=== PATIENT | female | born 1940 | race Caucasian/White ===

== ENCOUNTER 2021-05-05 11:50 | Emergency (ER) | payer MEDICARE, OTHER, SELFPAY ==
[2021-05-05 11:50] VITALS: BP 156/78; PULSE 72; RESP 14; TEMP 37; O2SAT 97; BMI 26.5
--- NOTE | 2021-05-05 11:51 | HMH.EDDIZZ ---
ED Disposition Clinical Impression: Benign paroxysmal positional vertigo Qualifiers: Laterality: unspecified laterality Qualified Code(s): H81.10 - Benign paroxysmal vertigo, unspecified ear Disposition: Home, Self-Care Condition on Discharge: Fair Instructions: Vertigo Additional Instructions: Please follow-up with your primary care physician in 3 to 4 days if your symptoms do not improve. Return to the emergency department immediately if your symptoms worsen or if you develop new symptoms. Prescriptions: Meclizine HCl [Meclizine 25mg Tab] 25 mg PO Q6H PRN #20 tab PRN Reason: Vertigo Transmission Status: Received by [id number] Referrals: Provider,Referral, [Primary Care Provider] - - Critical Care Critical Care Time: No Attestation: On , the high probability of a clinically significant, sudden or life threatening deterioration of the following system(s) required my full and direct attention, intervention and personal management. The time I documented below is in addition to time spent performing reported procedures but includes the following listed in this critical care notation. Medical Decision Making - Medical Records Medical records reviewed: Yes: I reviewed the patient's medical records. - Aman Inquiry Pt receiving controlled substance: No Vital Signs: 05/05/21 11:50 05/05/21 12:30 05/05/21 13:00 Temperature 98.6 F Temperature Source Oral Pulse Rate 76 77 Pulse Rate [Left] 72 Respiratory Rate 14 17 13 Blood Pressure 148/72 H 138/73 Blood Pressure [Right Arm] 156/78 H Blood Pressure Mean [Right Arm] 104 02 Sat by Pulse Oximetry 97 95 95 Oxygen Delivery Method Room Air Orders (Tests/Meds): ED MEDICATIONS Discontinued Medications Generic Name Dose Route Start Last Admin Trade Name Freq PRN Reason Stop Dose Admin Meclizine HCl 50 mg 05/05/21 11:55 05/05/21 11:58 Meclizine 25mg Tablet PO 05/05/21 11:56 50 mg ONCE ONE Administration - Reevaluation(s) Time: 12:51 Reevaluation #1: Patient symptoms are much better. She received meclizine. Her symptoms are most consistent with benign peripheral vertigo. Medical Decision Narrative: The patient presents to the emergency department complaining of dizziness with vomiting. This began last night. The patient has no other neurologic deficits. Patient was given meclizine for benign positional vertigo. Her symptoms improved significantly. I do not feel that the patient requires imaging or other work-up. NIH stroke scale is 0. Patient will be discharged home in stable condition with a prescription for meclizine. Dizzy HPI - General Chief Complaint: Dizziness Stated Complaint: vomiting/diarrhea Time Seen by Provider: 05/05/21 11:52 Mode of Arrival: EMS Source of Information: Patient Limitations: No Limitations - History of Present Illness HPI Narrative: The patient presents to the emergency department via EMS complaining of dizziness and vomiting. This began approximately at midnight last night. Of note, the patient's son tested positive for Covid and the patient has not received Covid vaccination. However, the patient does not complain of shortness of breath, cough, fever, loss of smell, or loss of taste, complaint: dizziness Timing: sudden onset Description: sense of movement, room spinning History of similar episodes: No Severity: moderate - Related Data Previous Rx's Medication Instructions Recorded Meclizine HCl [Meclizine 25mg Tab] 25 mg PO Q6H PRN #20 tab 05/05/21 Allergies Allergy/AdvReac Type Severity Reaction Status Date / Time No Known Allergies Allergy Verified 05/05/21 11:56 [facility] History - Hepatitis A Screen Drug use history?: No Attestation statement:: This patient has been screened for Hepatitis A risk factors. I have reviewed the patient's past medical history: Yes ROS Obtained: Yes All systems reviewed & no additional complaints -
[2021-05-05 12:30] VITALS: BP 148/72; PULSE 76; RESP 17; O2SAT 95
[2021-05-05 13:00] VITALS: BP 138/73; PULSE 77; RESP 13; O2SAT 95
[2021-05-05 14:09] VITALS: BP 138/73; PULSE 84; RESP 17; TEMP 36.7; O2SAT 92
== END 2021-05-05 14:10 | disposition home or self-care (01) ==
PROVIDERS: Emergency Provider Emergency Medicine
DX: H81.10 Benign paroxysmal vertigo, unspecified ear (principal)
CPT/HCPCS: 99281

== ENCOUNTER 2021-05-12 14:10 | Emergency (ER) | payer MEDICARE, OTHER, SELFPAY ==
[2021-05-12 16:01] VITALS: BMI 23.8
--- NOTE | 2021-05-12 16:02 | XR_ITS ---
PROCEDURE: XR CHEST PORTABLE CLINICAL HISTORY: SYNCOPAL EPISODE COMPARISON: No exams were available for comparison FINDINGS: Borderline cardiomegaly without failure. The mediastinum is prominent and may be related to vascular ectasia. No lobar consolidation or collapse. Faint nodular opacity is present in the right lower lobe nonspecific possibly due to summation artifact. IMPRESSION: No definite acute finding. There is cardiomegaly with mild prominence of the mediastinum and questionable nodular density in the right lung base. Dictated by: Rosas Levy MD 05/12/2021 16:39 Rosas Levy MD in [facility] 05/12/2021 16:39
[2021-05-12 16:15] VITALS: BP 115/82; PULSE 97; RESP 16; TEMP 36.8; O2SAT 89; BMI 23.8
--- NOTE | 2021-05-12 16:18 | CT_ITS ---
PROCEDURE INFORMATION: Exam: CT Head Without Contrast Exam date and time: 05/12/2021 4:18 PM Age: 80 years old Clinical indication: Syncope and collapse TECHNIQUE: Imaging protocol: Computed tomography of the head without contrast. Radiation optimization: All CT scans at this facility use at least one of these dose optimization techniques: automated exposure control; mA and/or kV adjustment per patient size (includes targeted exams where dose is matched to clinical indication); or iterative reconstruction. COMPARISON: No relevant prior studies available. FINDINGS: Brain: No intracranial bleed, suspicious mass, or mass effect. Ventricles appear unremarkable. There is minimal low attenuation change in the white matter most consistent with chronic age related small vessel ischemic change. No acute territorial infarction is seen. These can be initially occult on head CT. Cerebral ventricles: See Brain finding. Paranasal sinuses: Visualized sinuses are unremarkable. No fluid levels. Mastoid air cells: Visualized mastoid air cells are well aerated. Bones/joints: Unremarkable. No acute fracture. Soft tissues: Unremarkable. IMPRESSION: 1. No intracranial bleed, suspicious mass, or mass effect. Ventricles appear unremarkable. 2. There is minimal low attenuation change in the white matter most consistent with chronic age related small vessel ischemic change. No acute territorial infarction is seen. These can be initially occult on head CT.
[2021-05-12 16:31] LABS: Chloride 105 mmol/L (98-107); Sodium 138 mmol/L (136-145)
[2021-05-12 16:32] LABS: Potassium 3.6 mmoL/L (3.5-5.1)
--- NOTE | 2021-05-12 16:33 | CT_ITS ---
PROCEDURE INFORMATION: Exam: CT Cervical Spine Without Contrast Exam date and time: 05/12/2021 4:33 PM Age: 80 years old Clinical indication: Injury or trauma; Fall; Blunt trauma TECHNIQUE: Imaging protocol: Computed tomography images of the cervical spine without contrast. Radiation optimization: All CT scans at this facility use at least one of these dose optimization techniques: automated exposure control; mA and/or kV adjustment per patient size (includes targeted exams where dose is matched to clinical indication); or iterative reconstruction. COMPARISON: CR XR CHEST PORTABLE 05/12/2021 4:13 PM FINDINGS: Bones/joints: No cervical fracture or subluxation. Discs/Spinal canal/Neural foramina: No significant disc protrusion. No severe spinal canal stenosis. No significant neural foraminal narrowing. Thyroid: Indeterminate thyroid nodules with a dominant 2.3 cm nodule right lobe of the thyroid. Nonemergent ultrasound is recommended for further assessment unless this has been previously worked up. Lungs: Atelectasis and pleuroparenchymal scarring periphery of the visualized left upper lung. It is difficult to exclude superimposed ground-glass opacities here currently. Soft tissues: Unremarkable. IMPRESSION: 1. No cervical fracture or subluxation. 2. Indeterminate thyroid nodules with a dominant 2.3 cm nodule right lobe of the thyroid. Nonemergent ultrasound is recommended for further assessment unless this has been previously worked up. 3. Atelectasis and pleuroparenchymal scarring periphery of the visualized left upper lung. It is difficult to exclude superimposed ground-glass opacities here currently. COMMENTS: Consistent with the [employer]'s Incidental Findings Committee white paper (J Am Puneet Radiol 2015): In patients aged 35 years and older with an incidental thyroid nodule equal to or greater than 1.[address], MRI or extrathyroidal US, further evaluation with dedicated thyroid US is recommended for patients with normal life expectancy and without comorbidities. For smaller nodules without suspicious features, no further evaluation or follow up is recommended.
[2021-05-12 16:34] LABS: Alanine Aminotransferase 21 U/L (12-78); Albumin Level 3.8 g/dl (3.5-5.0); Albumin/Globulin Ratio 1.2 (1.1-1.8); Alkaline Phosphatase 80 U/L (38-126); Anion Gap 13.6 mEq/L (5-15); Aspartate Amino Transferase 24 U/L (14-36); Bilirubin,Total 0.6 mg/dl (0.2-1.3); Blood Urea Nitrogen 20 mg/dl (7-17); Carbon Dioxide 23 mmol/L (22.0-30.0); Creatinine Clearance Estimated 43 mL/min (50-200); Estimated Glomerular Filt Rate 81 ml/min (>60); GFR (African American) 98 ML/MIN (>60); Globulin 3.2 g/dL (1.3-3.2)
[2021-05-12 16:35] LABS: Calcium 8.6 mg/dl (8.4-10.2); Glucose 129 mg/dl (74-100)
[2021-05-12 16:44] LABS: Basophils % 0.2 % (0.1-2.0); Eosinophils % 0.3 % (0.1-12.0); Hematocrit 42.4 % (37.0-47.0); Hemoglobin 14.3 g/dL (12.2-16.2); Lymphocytes # 1.5 K/mm3 (0.7-4.5); Lymphocytes % 19.6 % (10-50); Mean Corpuscular HGB Conc 33.8 g/dL (31.8-35.4); Mean Corpuscular Hemoglobin 30.1 pg (27.0-31.2); Mean Platelet Volume 7.2 fl (7.4-10.4); Monocytes # 0.6 K/mm3 (0.1-1.0); Monocytes % 8.3 % (1.7-9.3); Neutrophils # 5.4 K/mm3 (1.8-7.8); Neutrophils % 71.6 % (37.0-80.0); Platelet Count 313 K/mm3 (142-424); Red Blood Count 4.76 M/mm3 (4.20-5.40); Red Cell Distribution Width 12.7 % (11.5-17.5); White Blood Count 7.5 K/mm3 (4.8-10.8)
[2021-05-12 16:47] LABS: Troponin I < 0.01 ng/ml (0.00-0.034)
[2021-05-12 17:30] VITALS: BP 134/90; PULSE 105; RESP 22; O2SAT 95
--- NOTE | 2021-05-12 17:54 | HMH.EDGENADL ---
ED Disposition Clinical Impression: Vertigo Benign paroxysmal positional vertigo Qualifiers: Laterality: unspecified laterality Qualified Code(s): H81.10 - Benign paroxysmal vertigo, unspecified ear Disposition: Home, Self-Care Condition on Discharge: Good Instructions: DI for Syncope in Adults (Fainting) Additional Instructions: Follow-up with your PCP tomorrow. Return to emergency department for headache, visual change, confusion, nausea and vomiting. Referrals: Provider,Referral, [Primary Care Provider] - 05/13/21 (Call for appointment) Time of Disposition: 18:06 - Critical Care Critical Care Time: No Attestation: On 05/12/21, the high probability of a clinically significant, sudden or life threatening deterioration of the following system(s) required my full and direct attention, intervention and personal management. The time I documented below is in addition to time spent performing reported procedures but includes the following listed in this critical care notation. Medical Decision Making - Medical Records Medical records reviewed: Yes: I reviewed the patient's medical records. - Aman Inquiry Pt receiving controlled substance: No Vital Signs: 05/12/21 16:15 05/12/21 17:30 Temperature 98.3 F Temperature Source Oral Pulse Rate 105 H Pulse Rate [Right] 97 H Respiratory Rate 16 22 Blood Pressure 134/90 Blood Pressure [Right Arm] 115/82 Blood Pressure Mean [Right Arm] 93 02 Sat by Pulse Oximetry 89 L 95 Oxygen Delivery Method Room Air - Lab Data Lab results reviewed: Yes: I reviewed the patient's lab results. Lab Results 05/12/21 16:14: WBC 7.5, RBC 4.76, Hgb 14.3, Hct 42.4, MCV 89.0, MCH 30.1, MCHC 33.8, RDW 12.7, Plt Count 313, MPV 7.2 L, Neut % (Auto) 71.6, Lymph % (Auto) 19.6, Towns % (Auto) 8.3, Eos % (Auto) 0.3, Baso % (Auto) 0.2, Neut # (Auto) 5.4, Lymph # (Auto) 1.5, Towns # (Auto) 0.6, Eos # (Auto) 0.0, Baso # (Auto) 0.0 05/12/21 16:14: Sodium 138, Potassium 3.6, Chloride 105, Carbon Dioxide 23, Anion Gap 13.6, BUN 20 H, Creatinine 0.70, Estimated Creat Clear 43, Estimated GFR 81, Est GFR ( Amer) 98, Glucose 129 H, Calcium 8.6, Total Bilirubin 0.6, AST 24, ALT 21, Alkaline Phosphatase 80, Troponin I < 0.01, Total Protein 7.0, Albumin 3.8, Globulin 3.2, Albumin/Globulin Ratio 1.2 Result diagrams: 05/12/21 16:14 05/12/21 16:14 Orders (Tests/Meds): ED MEDICATIONS Discontinued Medications Generic Name Dose Route Start Last Admin Trade Name Freq PRN Reason Stop Dose Admin Diphenhydramine HCl 25 mg 05/12/21 17:36 05/12/21 17:40 Diphenhydramine 50mg/Ml Vial IV 05/12/21 17:37 25 mg ONCE ONE Administration Meclizine HCl 50 mg 05/12/21 17:36 05/12/21 17:42 Meclizine 25mg Tablet PO 05/12/21 17:37 50 mg ONCE ONE Administration Ondansetron HCl 4 mg 05/12/21 17:36 05/12/21 17:41 Ondansetron 4mg/2ml Vial IV 05/12/21 17:37 4 mg ONCE ONE Administration ORDERS Category Date Time Status Rapid PCR Covid and Flu A/B Stat Lab 05/12/21 16:02 Ordered - CT Data CT Scan: Head, C-Spine Time Received: 16:[address] Reviewed: Yes: I have reviewed the patient's CT results Preliminary Findings: Normal/NAD - ECG Data Tracing #1 I reviewed this ECG and interpreted as documented below: Sinus rhythm with right bundle branch block. Normal intervals. No ST elevation or depression. ECG initial impression date: 05/12/21 ECG initial impression time: 16:00 Medical Decision Narrative: 80yo F evaluated for near syncope/syncope. Differential diagnosis also includes TIA/stroke, vertigo. Patient is in no acute distress though has episodes of dizziness during my exam. She has recurrent episodes of small-volume emesis secondary to her dizziness. Her abdomen is benign. Laboratory studies are benign. CT head and C-spine are unremarkable, and notably did not show signs of sinusitis. No signs of trauma. Patient repeatedly states she would
[2021-05-12 18:53] VITALS: BP 107/84; PULSE 109; RESP 18; TEMP 36.8; O2SAT 95
== END 2021-05-12 18:54 | disposition home or self-care (01) ==
LOC: UTC 14:34 → ER 15:55
PROVIDERS: Emergency Provider Family Medicine
DX: H81.10 Benign paroxysmal vertigo, unspecified ear (principal); R42 Dizziness and giddiness
CPT/HCPCS: 70450; 71045; 72125; 80053; 84484; 85025; 93005; 96375; 99282; J2405